=== PATIENT | female | born 1950 | race Caucasian/White ===

== ENCOUNTER 2017-06-08 11:04 | Emergency (ER) | payer MEDICARE, MEDICAID ==
[2017-06-08] MEDS ORDERED: diaZEpam 10 mg/2 ml Inj IVP ONE (11:54)
--- NOTE | 2017-06-08 11:56 | ED PDOC ---
HPI: Back Time Seen by Provider: 06/08/17 11:19 Chief Complaint (Nursing): Back Pain Chief Complaint (Provider): Back Pain History Per: Patient Additional Complaint(s): 66 yo female, PMH of DM, HTN and Chronic Back pain, presents to ED with complaints of severe lower back pain x 4 days. denies injury. No bowle or bladder dysfunction. Past Medical History Reviewed: Nursing Documentation, Vital Signs - Medical History PMH: Asthma, Back Problems, Diabetes, HTN Denies: Chronic Kidney Disease - Surgical History Surgical History: Cholecystectomy - Family History Family History: States: [place], Diabetes, Hypertension - Living Arrangements Living Arrangements: With Family - Social History Current smoker - smoking cessation education provided: No Alcohol: None Drugs: Denies - Home Medications Home Medications: Ambulatory Orders Medication Instructions Recorded Diazepam 5 mg PO DAILY #10 tab 04/30/14 Naproxen 500 mg PO BID #20 ect 04/30/14 Lidocaine 1 each TP Q12 #12 adh..patch 06/08/17 oxyCODONE/Acetaminophen [Percocet 1 ea PO Q6 PRN #5 tab 06/08/17 5/325 mg Tab] - Allergies Allergies/Adverse Reactions: Allergies Allergy/AdvReac Type Severity Reaction Status Date / Time codeine Allergy ITCHING Verified 06/08/17 11:48 Review of Systems ROS Statement: Except As Marked, All Systems Reviewed And Found Negative Musculoskeletal: Positive for: Back Pain Physical Exam - Reviewed Nursing Documentation Reviewed: Yes Vital Signs Reviewed: Yes - Physical Exam Appears: Positive for: Non-toxic, No Acute Distress, Uncomfortable Head Exam: Positive for: ATRAUMATIC, NORMAL INSPECTION, NORMOCEPHALIC Skin: Positive for: Normal Color, Warm, DRY Eye Exam: Positive for: EOMI, Normal appearance, PERRL ENT: Positive for: Normal ENT Inspection Neck: Positive for: Normal, Painless ROM Cardiovascular/Chest: Positive for: Regular Rate, Rhythm Respiratory: Positive for: CNT, Normal Breath Sounds Gastrointestinal/Abdominal: Positive for: Normal Exam, Bowel Sounds, Soft Back: Positive for: Normal Inspection. Negative for: L CVA Tenderness, R CVA Tenderness, Vertebral Tenderness, Other Extremity: Positive for: Normal ROM Neurologic/Psych: Positive for: Alert, Oriented Medical Decision Making Medical Decision Making: IV access established and treatment initiate with Morphine, Valium and Solumedrol CT IMPRESSION: No acute fracture, spondylolysis or anterior listhesis. Multilevel degenerative disc disease superimposed on a congenitally narrow spinal canal, worse at L4-5 with a diffuse posterior disc bulge which in conjunction with mild ligamentum flavum infolding results in mild spinal canal stenosis. Also noted is a left foraminal and far lateral disc protrusion which impinges on the exiting left L4 nerve root. Moderate bilateral facet arthropathy contribute to mild right and severe left neural foraminal stenosis. Pt educated on results and demonstrated full understanding. Pt still complaining of severer pain on re-eval. Medicated with Additional 4 mg Morphine. good relief obtained. Pt educated on importance of follow up and pain control. Continue gabapentin at home, in addition to new RX Return to ED if at anytime condition worsens Disposition - Clinical Impression Clinical Impression: Chronic back pain - Patient ED Disposition Is Patient to be Admitted: No - Disposition Disposition: Routine/Home Disposition Time: 15:23 Condition: STABLE Prescriptions: Lidocaine 1 each TP Q12 #12 adh..patch oxyCODONE/Acetaminophen [Percocet 5/325 mg Tab] 1 ea PO Q6 PRN #5 tab PRN Reason: Pain, Severe (8-10) Instructions: Chronic Back Pain (ED) Forms: [facility] (Thai) - POA Present On Arrival: None
--- NOTE | 2017-06-08 15:07 | CT ---
PROCEDURE: CT Lumbar Spine without contrast HISTORY: severe pain, urinary incontinence COMPARISON: None. TECHNIQUE: Axial computed tomography images were obtained of the lumbar spine without the use of intravenous contrast. Coronal and sagittal reformatted images were created and reviewed. Radiation dose: Total exam DLP = 1353.42 mGy-cm. This CT exam was performed using one or more of the following dose reduction techniques: Automated exposure control, adjustment of the mA and/or kV according to patient size, and/or use of iterative reconstruction technique. FINDINGS: VERTEBRAE: There is mild dextrocurvature in the lumbar spine. There is mild degenerative retrolisthesis of L5 on S1. There is normal lumbar lordosis. There is diffuse bone demineralization. There is no acute fracture or spondylolysis. 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 DISCS/SPINAL CANAL/NEURAL FORAMINA: L1-2: No large disc herniation, neural foraminal or spinal canal stenosis. L2-3: Diffuse posterior disc bulge in conjunction with mild ligamentum flavum infolding results in mild thecal sac stenosis. No central spinal canal stenosis. Mild bilateral facet arthropathy contributes to mild right neural foraminal stenosis. L3-4: Diffuse posterior disc bulge in conjunction with moderate ligamentum flavum infolding results in moderate thecal sac stenosis. Moderate bilateral facet arthropathy contributes to moderate neural foraminal stenosis. L4-5: Diffuse posterior disc bulge with superimposed left foraminal and far lateral disc protrusions in conjunction with mild ligamentum flavum infolding result in mild spinal canal stenosis. Moderate bilateral facet arthropathy contributes to mild right and severe left neural foraminal stenosis. Also noted is impingement on the exiting left L4 nerve root. L5-S1: Diffuse posterior disc bulge in conjunction with mild ligamentum flavum infolding results in mild spinal canal stenosis. Mild bilateral facet arthropathy contributes to moderate right and mild left neural foraminal stenosis. PARASPINAL SOFT TISSUES: Unremarkable. OTHER FINDINGS: None. IMPRESSION: No acute fracture, spondylolysis or anterior listhesis. Multilevel degenerative disc disease superimposed on a congenitally narrow spinal canal, worse at L4-5 with a diffuse posterior disc bulge which in conjunction with mild ligamentum flavum infolding results in mild spinal canal stenosis. Also noted is a left foraminal and far lateral disc protrusion which impinges on the exiting left L4 nerve root. Moderate bilateral facet arthropathy contribute to mild right and severe left neural foraminal stenosis.
[2017-06-08] MEDS ORDERED: Morphine 4 MG/ML VIAL ONE (15:22)
[2017-06-08 17:21] VITALS: BP 164/81; PULSE 78
== END 2017-06-08 15:54 | disposition home or self-care (01) ==
LOC: H.ER 11:04
DX: M54.9 Dorsalgia, unspecified (principal); E11.9 Type 2 diabetes mellitus without complications; G89.29 Other chronic pain; I10 Essential (primary) hypertension; J45.909 Unspecified asthma, uncomplicated; M48.061 Spinal stenosis, lumbar region without neurogenic claudication
CPT/HCPCS: 72131; 96374; 96375; 96376; 99283; J2270; J2930

== ENCOUNTER 2018-09-30 17:37 | Observation (INO) | payer MEDICARE, MEDICAID ==
[2018-09-30] MEDS ORDERED: Sodium Chloride 0.9% 1,000 ML IV STA ×2 (17:56→18:38)
--- NOTE | 2018-09-30 18:14 | ED PDOC ---
HPI: Abdomen Time Seen by Provider: 09/30/18 17:51 Chief Complaint (Nursing): Abdominal Pain Chief Complaint (Provider): Abdominal Pain History Per: Patient History/Exam Limitations: no limitations Current Symptoms Are (Timing): Still Present Additional Complaint(s): 68 year old female, with a history of herniated disks, abdominal hernia, HTN, diabetes, and asthma, presents to the ED complaining of abdominal pain. Daughter reports patient is always thirsty and dehydrated. 2 months ago, tabitha echevarria had fallen and had gone to the hospital. Daughter further states that patient has not used a bathroom in 15 days and has given her Enema and prune juice with no relief. She reports patient has had bilateral leg swelling for 3 months and yellow eyes. PMD: Adalberto Collins Past Medical History Reviewed: Historical Data, Nursing Documentation, Vital Signs Vital Signs: Last Vital Signs Temp 98.6 F 09/30/18 17:41 Pulse 80 09/30/18 17:41 Resp 16 09/30/18 17:41 BP 128/83 09/30/18 17:41 Pulse Ox 89 L 09/30/18 17:41 - Medical History PMH: Arthritis, Asthma, Back Problems, Diabetes, HTN, Hypercholesterolemia, Sleep Apnea Denies: Chronic Kidney Disease Other PMH: 3 Herniated disks and abdominal hernia - Surgical History Surgical History: Cholecystectomy - Family History Family History: States: [place], Diabetes, Hypertension - Immunization History Hx Tetanus Toxoid Vaccination: No Hx Influenza Vaccination: No Hx Pneumococcal Vaccination: No - Home Medications Home Medications: Ambulatory Orders Medication Instructions Recorded Gabapentin [Neurontin] 800 mg PO BID 02/26/18 MetFORMIN [glucoPHAGE] 1,000 mg PO BID 02/26/18 Budesonide/Formoterol Fumarate Q12 06/19/18 [Symbicort 80-4.5 Mcg Inhaler] amLODIPine [Norvasc] 10 mg PO DAILY 06/19/18 Albuterol/Ipratropium [Duoneb 3 3 ml INH RQ6 PRN neb 06/23/18 mg/0.5 mg (3 ml) UD] Docusate [Colace] 100 mg PO BID cap 06/23/18 Furosemide [Lasix] 20 mg PO DAILY tab 06/23/18 Heparin 5,000 units SC Q8 vial 06/23/18 Insulin Glargine, Recombina 50 unit SC HS unit 06/23/18 [Lantus] Insulin Human Regular [Novolin R] 0 unit SC ACHS unit 06/23/18 Insulin Human Regular [Novolin R] 0 unit SC ACHS unit 06/23/18 Losartan [Cozaar] 25 mg PO DAILY #30 tab 06/23/18 Mineral Oil [Fleet Mineral Oil 135 ml RC ONCE nma 06/23/18 Enema] Pantoprazole [Protonix EC Tab] 40 mg PO DAILY ect 06/23/18 Polyethylene Glycol 3350 [Miralax] 17 gm PO BID packet 06/23/18 Sodium Chloride [Sodium Chloride 1 gm PO DAILY tab 06/23/18 Tab] oxyCODONE [oxyCONTIN Extended 20 mg PO Q12H tab 06/23/18 Release Tab] - Allergies Allergies/Adverse Reactions: Allergies Allergy/AdvReac Type Severity Reaction Status Date / Time codeine Allergy ITCHING Verified 06/17/18 13:17 FISH Allergy ITCHING Verified 09/30/18 17:41 morphine Allergy ITCHING Verified 09/30/18 17:42 mushroom Allergy ITCHING Verified 06/19/18 18:27 Review of Systems ROS Statement: Except As Marked, All Systems Reviewed And Found Negative Gastrointestinal: Positive for: Abdominal Pain Musculoskeletal: Positive for: Other (Leg swelling) Physical Exam - Reviewed Nursing Documentation Reviewed: Yes Vital Signs Reviewed: Yes - Physical Exam Appears: Positive for: Uncomfortable Head Exam: Positive for: ATRAUMATIC, NORMOCEPHALIC Skin: Positive for: Normal Color, Warm, Dry Eye Exam: Positive for: Scleral icterus Cardiovascular/Chest: Positive for: Regular Rate, Rhythm Respiratory: Positive for: Other (Difficult to auscultate lungs due to patient moaning). Negative for: Crackles, Rhonchi, Wheezing Gastrointestinal/Abdominal: Positive for: Soft, Tenderness (diffuse tenderness worse in the RUQ) Back: Positive for: Other (unable to evaluate due to patient's inability to being turned secondary to pain) Extremity: Positive for: Other (Bilateral pitting edema past the knees; 2cm by 2cm patch to the left lateral ankle which is not open; unable to palpate distal pulses due to pitting edema) Neurological/Psych: Positive for: Awake, Alert - Laboratory Results Result Diagrams: 09/30/18 18:30 03/28/19 18:30 - ECG O2 Sat by Pulse Oximetry: 89 (RA) Pulse Ox Interpretation: Abnormal Medical Decision Making Medical Decision Making: Initial Impression: workup for right upper abdominal pain, fluid overload, and constipation Initial Plan: --CT abd/pelvis --Cardiac workup with BNP and Troponin --Chest X-ray --Reassess patient Most likely admission under [facility]. 19:00 Patient signed out to Dr. Brownlee pending lab results and CT abd/pelvis. To give Lasix if BMP is elevated or fluid overload on chest X-ray. Most likely admitted under [facility]. - Scribe Attestation: Documented by Sunny Pichardo acting as a scribe for Becki Mcgill MD. Provider Scribe Attestation: All medical record entries made by the Scribe were at my direction and personal ly dictated by me. I have reviewed the chart and agree that the record accurately reflects my personal performance of the history, physical exam, medical decision making, and the department course for this patient. I have also personally directed, reviewed, and agree with the discharge instructions and disposition. Disposition - Disposition Disposition: Transfer of Care Disposition Time: 19:00 Forms: [employer] ([place]) Patient Signed Over To: Barrington Brownlee
[2018-09-30 18:47] LABS: BASO # 0.1 K/uL (0.0-0.2); EOS # 0.3 K/uL (0.0-0.7); EOS % 2.8 % (0.0-4.0); HEMOGLOBIN 9.8 g/dL (12.0-16.0); LYMPH # 1.8 K/uL (1.0-4.3); LYMPH % 18.4 % (20.0-40.0); MEAN CELL VOLUME 94.3 fl (81.0-99.0); MEAN CORPUSCULAR HEMOGLOBIN 32.6 pg (27.0-31.0); MEAN CORPUSCULAR HGB CONC 34.6 g/dL (33.0-37.0); MEAN PLATELET VOLUME 9.2 fl (7.2-11.7); MONO # 1.1 K/uL (0.0-0.8); MONO % 10.7 % (0.0-10.0); NEUT # 6.7 K/uL (1.8-7.0); NEUT % 67.1 % (50.0-75.0); RBC 2.99 Mil/uL (3.80-5.20); WHITE BLOOD COUNT 9.9 K/uL (4.8-10.8)
[2018-09-30 18:58] LABS: ALB/GLOB RATIO 0.6 (1.0-2.1); ALBUMIN 3.1 g/dL (3.5-5.0); ALT/SGPT 81 U/L (9-52); AST/SGOT 308 U/L (14-36); BLOOD UREA NITROGEN 10 mg/dl (7-17); CALCIUM 8.3 mg/dL (8.4-10.2); GFR NON-AFRICAN AMERICAN > 60; LIPASE 46 U/L (23-300)
[2018-09-30 19:10] LABS: B-TYPE NATRIURETIC PEPTIDE 187 pg/ml (0-900)
--- NOTE | 2018-09-30 19:24 | ED PDOC ---
- Laboratory Results Result Diagrams: 09/30/18 18:30 09/30/18 18:30 Lab Results: Troponin I < 0.0120 ng/mL (0.00-0.120) 09/30/18 18:30 NT-Pro-B Natriuret Pep 187 pg/ml (0-900) 09/30/18 18:30 Total Bilirubin 8.4 mg/dl (0.2-1.3) H 09/30/18 18:30 AST 308 U/L (14-36) H D 09/30/18 18:30 ALT 81 U/L (9-52) H 09/30/18 18:30 Alkaline Phosphatase 380 U/L (38-126) H D 09/30/18 18:30 Total Protein 8.1 G/DL (6.3-8.2) 09/30/18 18:30 Albumin 3.1 g/dL (3.5-5.0) L 09/30/18 18:30 Globulin 5.0 gm/dL (2.2-3.9) H 09/30/18 18:30 Albumin/Globulin Ratio 0.6 (1.0-2.1) L 09/30/18 18:30 Lipase 46 U/L (23-300) 09/30/18 18:30 - ECG O2 Sat by Pulse Oximetry: 89 (RA) Pulse Ox Interpretation: Abnormal Medical Decision Making Medical Decision Makin:00 Patient signed out to this provider from Dr. Mcgill. Pending CT abd/pelvis and labs. 0018 Abdomen/Pelvis CT FINDINGS: LUNG BASES: The lung bases appear clear. No pleural effusions are seen. LIVER: Unremarkable. GALLBLADDER AND BILE DUCTS: Status post cholecystectomy. No biliary ductal dilatation is evident. PANCREAS: Unremarkable. SPLEEN: Unremarkable. ADRENAL GLANDS: Unremarkable. KIDNEYS, URETERS, AND BLADDER: The kidneys appear within normal limits. There is no hydronephrosis or hydroureter. No urinary calculi are seen. The urinary bladder appeared normal in size and configuration. STOMACH AND BOWEL: Unremarkable appearance of the stomach. No evidence of bowel obstruction. No evidence suggesting enteritis or colitis. There is subtle pericolonic haziness of the mesenteric fat about the lower-mid ascending colon possibly compatible with mesenteritis. APPENDIX: No evidence of acute appendicitis on CT examination. There appears to have been previous appendectomy. PERITONEUM: No free fluid. No free air. LYMPH NODES: No lymphadenopathy is evident. REPRODUCTIVE: Unremarkable as visualized. VASCULATURE: No evidence of abdominal aortic aneurysm. Moderate atherosclerotic vascular plaquing is present. BONES: No aggressive appearing osseous lesion. No acute osseous pathology evident. Advanced osteoarthritic changes are noted within both hip joints. There is vacuum disc phenomenon and disc interspace narrowing at T12-L1, L2-3, L3-4, L4- 5, L5-S1 compatible with degenerative disc disease. IMPRESSION: 1. Subtle pericolonic haziness of the mesenteric fat about the lower-mid ascending colon region may be compatible with mesenteritis. 2. Status post cholecystectomy. 3. There appears to have been prior appendectomy. 4. Multilevel degenerative disc disease. --Patient continues to be hypoxic on RA, saturating well on nasal cannula --CT does not show acute reason for pain at this moment --Will place in obs for hypoxia, dehydration, and abdominal pain --Adalberto Finch [place] aware Scribe Attestation: Documented by Sunny Pichardo acting as a scribe for Barrington Brownlee MD. Provider Scribe Attestation: All medical record entries made by the Scribe were at my direction and personal ly dictated by me. I have reviewed the chart and agree that the record accurately reflects my personal performance of the history, physical exam, medical decision making, and the department course for this patient. I have also personally directed, reviewed, and agree with the discharge instructions and disposition. Disposition - Clinical Impression Clinical Impression: Abdominal pain, Dehydration, Hypoxia - POA Present On Arrival: None - Disposition Disposition: Hospitalized as Observation Patient Disposition Time: 01:00 Condition: FAIR
[2018-09-30] MEDS ORDERED: Iohexol 300 100 ML IJ ONE (21:47)
[2018-09-30] MEDS ORDERED: Sodium Chloride 0.9% 50 ML IV ONE (21:48)
[2018-10-01] MEDS ORDERED: Oxycodone/Acetaminophen 5/325 mg Tab PO STA (00:53)
[2018-10-01] MEDS ORDERED: Oxycodone/Acetaminophen 5/325 mg Tab ONE (01:26)
[2018-10-01] MEDS ORDERED: Albuterol-Ipratrop 3 mg / 0.5 (3 ml) UD INH PRN (07:16)
[2018-10-01] MEDS: Insulin Regular 100 units/ml SC SCH ×4 (08:00→22:38)
--- NOTE | 2018-10-01 08:00 | RAD ---
Date of service: 09/30/2018 HISTORY: possible admission COMPARISON: No prior. TECHNIQUE: 1 view obtained. FINDINGS: LUNGS: No active pulmonary disease. PLEURA: No significant pleural effusion identified, no pneumothorax apparent. Right greater than left apical fibrotic changes noted mildly. CARDIOVASCULAR: Calcific atherosclerotic changes are seen related to the thoracic aorta. Normal cardiac size. No pulmonary vascular congestion. OSSEOUS STRUCTURES: No significant abnormalities. VISUALIZED UPPER ABDOMEN: Normal. OTHER FINDINGS: None. IMPRESSION: No acute infiltrate appreciated bilaterally. No pulmonary vascular congestion. Biapical fibrotic changes mild, greater at the right than left.
[2018-10-01] MEDS: Pantoprazole 40 mg EC Tab PO SCH (09:45)
[2018-10-01] MEDS: Fluticasone-Salmeterol 100-50mcg Diskus INH SCH ×2 (09:46→22:37)
[2018-10-01] MEDS: POLYETHYLENE GLYCOL 3350 17 GM/Dose PACKET PO SCH (09:46)
--- NOTE | 2018-10-01 11:27 | CT ---
Date of service: 09/30/2018 PROCEDURE: CT Abdomen and Pelvis with contrast HISTORY: RUQ pain, status post cholecystectomy COMPARISON: None. TECHNIQUE: Following the intravenous administration of iodinated contrast material, a CT examination of the abdomen and pelvis was performed from the domes of the diaphragms to the symphysis pubis with reformatted datasets provided in axial, sagittal and coronal planes. Oral contrast was not administered as per referring physician request. Contrast dose: Omnipaque 300, 95 cc Radiation dose: Total exam DLP = 778.21 mGy-cm. This CT exam was performed using one or more of the following dose reduction techniques: Automated exposure control, adjustment of the mA and/or kV according to patient size, and/or use of iterative reconstruction technique. FINDINGS: Beam hardening artifact from body habitus obscures evaluation of the upper and mid abdomen solid abdominal viscera. LOWER THORAX: Small hiatal hernia identified. No pleural or pericardial effusion appreciated. No infiltrates. LIVER: Unremarkable. No gross lesion or ductal dilatation. GALLBLADDER AND BILE DUCTS: Prior cholecystectomy. PANCREAS: Unremarkable. No gross lesion or ductal dilatation. SPLEEN: Unremarkable. ADRENALS: Unremarkable. No mass. KIDNEYS AND URETERS: Unremarkable. No hydronephrosis. No solid mass. VASCULATURE: Nonaneurysmal abdominal aortic calcific atherosclerotic changes are identified. BOWEL: The stomach decompressed and not well evaluated. No obstruction. However, there is gaseous distention of mid large-bowel loops which is nonspecific. Relatively prominent amount retained fecal material seen at the ascending colon with remainder of the colon essentially uninvolved. No gross mural thickening. APPENDIX: Normal appendix. PERITONEUM: Unremarkable. No free fluid. No free air. LYMPH NODES: Unremarkable. No enlarged lymph nodes. BLADDER: Unremarkable. REPRODUCTIVE: Unremarkable. BONES: No acute fracture. OTHER FINDINGS: None. IMPRESSION: 1. Nonspecific distention of mid large-bowel loops with prominent retained fecal material in the ascending colon. Distal large bowel obstruction not felt to be present. Clinically correlate nevertheless. Unremarkable small bowel. 2. Prior cholecystectomy. 3. Tiny hiatal hernia encountered. Preliminary report provided by Gus, 10/01/2018, 12:18 a.m..
[2018-10-01] MEDS ORDERED: Tolvaptan 15 MG TAB PO ONE (12:02)
--- NOTE | 2018-10-01 12:03 | CP.PCM.HP ---
History of Present Illness - History of Present Illness History of Present Illness: pt admitted for chronic back pain and leg pain and constipation. constipation likely the cause of the abd discomfort. all bw nad imaging reviewed. this is in line w/ recent bw from [facility] andthe office. the patient is well known to this provider. no cp, sob n oted/reported. echo pending. calls placed to pts daughter unanswered. pt does not wish for natalia Present on Admission - Present on Admission Any Indicators Present on Admission: Yes History of Uncontrolled Diabetes: Yes Review of Systems - Gastrointestinal Gastrointestinal: As Per HPI, Abdominal Pain - Musculoskeletal Musculoskeletal: As Per HPI, Back Pain, Muscle Cramps Past Patient History - Infectious Disease Hx of Infectious Diseases: None - Tetanus Immunizations Tetanus Immunization: Unknown - Past Medical History & Family History Past Medical History?: Yes - Past Social History Smoking Status: Former Smoker - CARDIAC Hx Cardiac Disorders: Yes (htn) Hx Hypercholesterolemia: Yes Hx Hypertension: Yes - PULMONARY Hx Respiratory Disorders: Yes Hx Asthma: Yes Hx Sleep Apnea: Yes - NEUROLOGICAL Hx Neurological Disorder: No - HEENT Hx HEENT Problems: No - RENAL Hx Chronic Kidney Disease: No - ENDOCRINE/METABOLIC Hx Endocrine Disorders: Yes (diabetes mellitus) Hx Diabetes Mellitus Type 2: Yes - HEMATOLOGICAL/ONCOLOGICAL Hx Blood Disorders: No Hx AIDS: No Hx Human Immunodeficiency Virus (HIV): No - INTEGUMENTARY Hx Dermatological Problems: No - MUSCULOSKELETAL/RHEUMATOLOGICAL Hx Musculoskeletal Disorders: Yes Hx Arthritis: Yes Hx Falls: Yes - GASTROINTESTINAL Hx Gastrointestinal Disorders: Yes Hx Constipation: Yes - GENITOURINARY/GYNECOLOGICAL Hx Genitourinary Disorders: Yes Hx Incontinence: Yes - PSYCHIATRIC Hx Psychophysiologic Disorder: Yes Hx Anxiety: Yes Hx Substance Use: No - SURGICAL HISTORY Hx Surgeries: Yes Hx Cholecystectomy: Yes - ANESTHESIA Hx Anesthesia: Yes Hx Anesthesia Reactions: No Hx Malignant Hyperthermia: No Has any member of the family had a problem w/ anesthesia?: No Meds Allergies/Adverse Reactions: Allergies Allergy/AdvReac Type Severity Reaction Status Date / Time codeine Allergy ITCHING Verified 06/17/18 13:17 FISH Allergy ITCHING Verified 09/30/18 17:41 morphine Allergy ITCHING Verified 09/30/18 17:42 mushroom Allergy ITCHING Verified 06/19/18 18:27 Physical Exam - Constitutional Appears: Non-toxic, No Acute Distress, Chronically Ill - Head Exam Head Exam: ATRAUMATIC, NORMAL INSPECTION, NORMOCEPHALIC - Eye Exam Eye Exam: EOMI, Normal appearance, PERRL Pupil Exam: NORMAL ACCOMODATION, PERRL - ENT Exam ENT Exam: Mucous Membranes Moist, Normal Exam - Neck Exam Neck exam: Positive for: Normal Inspection - Respiratory Exam Respiratory Exam: Clear to Auscultation Bilateral, NORMAL BREATHING PATTERN - Cardiovascular Exam Cardiovascular Exam: REGULAR RHYTHM, RRR, +S1, +S2 - GI/Abdominal Exam GI & Abdominal Exam: Normal Bowel Sounds, Soft. absent: Tenderness - Extremities Exam Extremities exam: Positive for: normal inspection - Back Exam Back exam: NORMAL INSPECTION - Neurological Exam Neurological exam: Alert, CN II-XII Intact, Normal Gait, Oriented x3, Reflexes Normal - Psychiatric Exam Psychiatric exam: Normal Affect, Normal Mood - Skin Skin Exam: Dry, Intact, Normal Color, Warm Results - Vital Signs Recent Vital Signs: Last Vital Signs Temp 97.4 F L 10/01/18 07:13 Pulse 63 10/01/18 11:21 Resp 18 10/01/18 09:07 BP 121/69 10/01/18 11:21 Pulse Ox 100 10/01/18 07:13 - Labs Result Diagrams: 10/01/18 12:25 10/02/18 05:31 Labs: Laboratory Results - last 24 hr 09/30/18 09/30/18 09/30/18 18:30 18:30 21:29 WBC 9.9 RBC 2.99 L Hgb 9.8 L Hct 28.2 L MCV 94.3 MCH 32.6 H MCHC 34.6 RDW 16.0 H Plt Count 273 MPV 9.2 Neut % (Auto) 67.1 Lymph % (Auto) 18.4 L Rankin % (Auto) 10.7 H Eos % (Auto) 2.8 Baso % (Auto) 1.0 Neut # (Auto) 6.7 Lymph # (Auto) 1.8 Rankin # (Auto) 1.1 H Eos # (Auto) 0.3 Baso # (Auto) 0.1 Sodium 126 L Potassium 4.1 Chloride 94 L Carbon Dioxide 24 Anion Gap 12 BUN 10 Creatinine 0.8 Est GFR ( Amer) > 60 Est GFR (Non-Af Amer) > 60 POC Glucose (mg/dL) 144 H Random Glucose 138 H Calcium 8.3 L Total Bilirubin 8.4 H AST 308 H D ALT 81 H Alkaline Phosphatase 380 H D Troponin I < 0.0120 NT-Pro-B Natriuret Pep 187 Total Protein 8.1 Albumin 3.1 L Globulin 5.0 H Albumin/Globulin Ratio 0.6 L Lipase 46 Assessment & Plan (1) DVT prophylaxis Assessment and Plan: scd nad ae hose anti coag if admitted over 24h Status: Acute (2) Chronic hyponatremia Assessment and Plan: improving nephro Status: Acute (3) Chronic back pain Assessment and Plan: pain control refusing to be oob ptot refusing natalia Status: Chronic Priority: High (4) T2DM (type 2 diabetes mellitus) Assessment and Plan: riss, home meds, diet control Morbidobesity-bmi 46.8 diet/exercise. Status: Chronic Priority: Medium (5) Morbid obesity with BMI of 45.0-49.9, adult Status: Acute Decision To Admit - Pt Status Changed To: Hospital Disposition Of: Observation - . Bed Request Type: Telemetry Admitting Physician: Karyn Negrete
[2018-10-01 13:09] LABS: BASO # 0.1 K/uL (0.0-0.2); BASO % 1.2 % (0.0-2.0); EOS # 0.3 K/uL (0.0-0.7); EOS % 3.6 % (0.0-4.0); HEMOGLOBIN 8.9 g/dL (12.0-16.0); LYMPH % 22.5 % (20.0-40.0); MEAN CELL VOLUME 94.2 fl (81.0-99.0); MEAN CORPUSCULAR HEMOGLOBIN 32.9 pg (27.0-31.0); MEAN PLATELET VOLUME 8.8 fl (7.2-11.7); MONO # 1.1 K/uL (0.0-0.8); MONO % 12.5 % (0.0-10.0); NEUT # 5.2 K/uL (1.8-7.0); NEUT % 60.2 % (50.0-75.0); NRBC % 0.1 % (0.0-0.0); RBC 2.69 Mil/uL (3.80-5.20); RED CELL DISTRIBUTION WIDTH 15.5 % (11.5-14.5); WHITE BLOOD COUNT 8.7 K/uL (4.8-10.8)
--- NOTE | 2018-10-01 13:09 | CP.PCM.CON ---
History of Present Illness - History of Present Illness History of Present Illness: This patient who is 68 years of age Afro-[place] female presented with back pain and abdominal distention and I was called to see her for hyponatremia. 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 Family history not contributory And past medical history above related to diabetes mellitus hypertension obesity hyperlipidemia abnormal liver function. And chronic hyponatremia Review of Systems - Constitutional Constitutional: Anorexia. absent: Chills - EENT Eyes: absent: Exophthalmos Nose/Mouth/Throat: absent: Epistaxis, Nasal Discharge, Sore Throat - Cardiovascular Cardiovascular: Dyspnea, Edema, Leg Edema, Paroxysmal Nocturnal Dyspnea, Pedal Edema, Syncope. absent: Chest Pain - Respiratory Respiratory: Chest Congestion. absent: Cough, Hemoptysis - Gastrointestinal Gastrointestinal: Bloating. absent: Abdominal Pain, Coffee Ground Emesis, Nausea - Genitourinary Genitourinary: Nocturia. absent: Hematuria - Musculoskeletal Musculoskeletal: Abnormal Gait, Back Pain - Neurological Neurological: As Per HPI, Dizziness, Syncope, Weakness. absent: Numbness, Focal Weakness, Headaches - Psychiatric Psychiatric: absent: Anxiety, Confusion - Endocrine Endocrine: Fatigue - Hematologic/Lymphatic Hematologic: absent: Easy Bleeding Past Patient History - Infectious Disease Hx of Infectious Diseases: None - Tetanus Immunizations Tetanus Immunization: Unknown - Past Medical History & Family History Past Medical History?: Yes - Past Social History Smoking Status: Former Smoker - CARDIAC Hx Cardiac Disorders: Yes (htn) Hx Hypercholesterolemia: Yes Hx Hypertension: Yes - PULMONARY Hx Respiratory Disorders: Yes Hx Asthma: Yes Hx Sleep Apnea: Yes - NEUROLOGICAL Hx Neurological Disorder: No - HEENT Hx HEENT Problems: No - RENAL Hx Chronic Kidney Disease: No - ENDOCRINE/METABOLIC Hx Endocrine Disorders: Yes (diabetes mellitus) Hx Diabetes Mellitus Type 2: Yes - HEMATOLOGICAL/ONCOLOGICAL Hx Blood Disorders: No Hx AIDS: No Hx Human Immunodeficiency Virus (HIV): No - INTEGUMENTARY Hx Dermatological Problems: No - MUSCULOSKELETAL/RHEUMATOLOGICAL Hx Musculoskeletal Disorders: Yes Hx Arthritis: Yes Hx Falls: Yes - GASTROINTESTINAL Hx Gastrointestinal Disorders: Yes Hx Constipation: Yes - GENITOURINARY/GYNECOLOGICAL Hx Genitourinary Disorders: Yes Hx Incontinence: Yes - PSYCHIATRIC Hx Psychophysiologic Disorder: Yes Hx Anxiety: Yes Hx Substance Use: No - SURGICAL HISTORY Hx Surgeries: Yes Hx Cholecystectomy: Yes - ANESTHESIA Hx Anesthesia: Yes Hx Anesthesia Reactions: No Hx Malignant Hyperthermia: No Has any member of the family had a problem w/ anesthesia?: No Meds Allergies/Adverse Reactions: Allergies Allergy/AdvReac Type Severity Reaction Status Date / Time codeine Allergy ITCHING Verified 06/17/18 13:17 FISH Allergy ITCHING Verified 09/30/18 17:41 morphine Allergy ITCHING Verified 09/30/18 17:42 mushroom Allergy ITCHING Verified 06/19/18 18:27 - Medications Medications: Current Medications Albuterol/Ipratropium (Duoneb 3 Mg/0.5 Mg (3 Ml) Ud) 3 ml INH RQ6 PRN PRN Reason: Shortness of Breath Amlodipine Besylate (Norvasc) 10 mg PO DAILY [facility] Last Admin: 10/01/18 11:21 Dose: 10 mg Docusate Sodium (Colace) 100 mg PO BID [facility] Last Admin: 10/01/18 09:46 Dose: 100 mg Furosemide (Lasix) 20 mg PO DAILY [facility] Gabapentin (Neurontin) 800 mg PO BID [facility] Last Admin: 10/01/18 11:21 Dose: 800 mg Heparin Sodium (Porcine) (Heparin) 5,000 units SC Q8 [facility]; Protocol Last Admin: 10/01/18 11:20 Dose: 5,000 units Insulin Detemir (Levemir) 50 units SC HS [facility] Insulin Human Regular (Humulin R) 0 units SC ACHS [facility]; Protocol Last Admin: 10/01/18 11:50 Dose: Not Given Losartan Potassium (Cozaar) 25 mg PO DAILY [facility] Last Admin: 10/01/18 11:20 Dose: 25 mg Metformin HCl (Glucophage) 1,000 mg PO BID [facility] Last Admin: 10/01/18 11:19 Dose: 1,000 mg Pantoprazole Sodium (Protonix Ec Tab) 40 mg PO DAILY [facility] Last Admin: 10/01/18 09:45 Dose: 40 mg Polyethylene Glycol (Miralax) 17 gm PO DAILY [facility] Last Admin: 10/01/18 09:46 Dose: 17 gm Fluticasone/Salmeterol (Advair Diskus 100/50) 1 puff INH Q12 [facility] Last Admin: 10/01/18 09:46 Dose: 1 puff Physical Exam - Constitutional Appears: No Acute Distress - Eye Exam Eye Exam: Conjunctival injection - ENT Exam ENT Exam: Mucous Membranes Moist - Neck Exam Neck exam: Negative for: Lymphadenopathy - Respiratory Exam Respiratory Exam: Rhonchi, NORMAL BREATHING PATTERN. absent: Chest Wall Tenderness - Cardiovascular Exam Cardiovascular Exam: absent: Gallop, JVD, Rubs - GI/Abdominal Exam GI & Abdominal Exam: Guarding, Normal Bowel Sounds - Extremities Exam Extremities exam: Negative for: calf tenderness - Back Exam Back exam: absent: CVA tenderness (L), CVA tenderness (R) - Neurological Exam Neurological exam: Alert - Psychiatric Exam Psychiatric exam: Anxious Results - Vital Signs Recent Vital Signs: Last Vital Signs Temp 97.4 F L 10/01/18 12:07 Pulse 70 10/01/18 12:07 Resp 18 10/01/18 12:07 BP 142/73 10/01/18 12:07 Pulse Ox 100 10/01/18 12:07 - Labs Result Diagrams: 09/30/18 18:30 09/30/18 18:30 Labs: Laboratory Results - last 24 hr 09/30/18 09/30/18 09/30/18 18:30 18:30 21:29 WBC 9.9 RBC 2.99 L Hgb 9.8 L Hct 28.2 L MCV 94.3 MCH 32.6 H MCHC 34.6 RDW 16.0 H Plt Count 273 MPV 9.2 Neut % (Auto) 67.1 Lymph % (Auto) 18.4 L Hudson % (Auto) 10.7 H Eos % (Auto) 2.8 Baso % (Auto) 1.0 Neut # (Auto) 6.7 Lymph # (Auto) 1.8 Hudson # (Auto) 1.1 H Eos # (Auto) 0.3 Baso # (Auto) 0.1 Sodium 126 L Potassium 4.1 Chloride 94 L Carbon Dioxide 24 Anion Gap 12 BUN 10 Creatinine 0.8 Est GFR ( Amer) > 60 Est GFR (Non-Af Amer) > 60 POC Glucose (mg/dL) 144 H Random Glucose 138 H Calcium 8.3 L Total Bilirubin 8.4 H AST 308 H D ALT 81 H Alkaline Phosphatase 380 H D Troponin I < 0.0120 NT-Pro-B Natriuret Pep 187 Total Protein 8.1 Albumin 3.1 L Globulin 5.0 H Albumin/Globulin Ratio 0.6 L Lipase 46 Assessment & Plan (1) Abdominal pain Status: Acute (2) Chronic hyponatremia Assessment and Plan: Chronic hyponatremia from previous admission in [facility] Diagnosis what appears to be SIADH Massive obesity Bilateral leg edema Abnormal liver enzyme including high bilirubin Diabetes mellitus My recommendation Because of the chronic hyponatremia and previous diagnosis SIADH with bilateral leg edema it was decided to go ahead and give tolvaptan for the hyponatremia because of the above reason. Need to monitor sodium not to rise more than 8-10 mEq in the next 24 hours Stat spot urine for sodium osmolarity and creatinine Management of the liver failure and suggest GI evaluation workup including hepatitis serology profile among other things Daily weight Daily electrolytes and we will decide tomorrow the response to tolvaptan Status: Acute (3) Elevated transaminase level Status: Acute (4) Obesity Status: Acute
[2018-10-01 13:26] LABS: SQUAMOUS EPITHIAL 1 /hpf (0-5); URINE BACTERIA RARE (<OCC); URINE BILIRUBIN NEGATIVE (NEGATIVE); URINE BLOOD NEGATIVE (NEGATIVE); URINE CLARITY CLEAR (Clear); URINE COLOR AMBER (YELLOW); URINE GLUCOSE (UA) NEG (NEGATIVE); URINE LEUKOCYTE ESTERASE NEG Leu/uL (Negative); URINE PROTEIN NEGATIVE (NEGATIVE)
[2018-10-01 13:28] LABS: ALB/GLOB RATIO 0.6 (1.0-2.1); ALBUMIN 2.6 g/dL (3.5-5.0); ALT/SGPT 64 U/L (9-52); AST/SGOT 256 U/L (14-36); BLOOD UREA NITROGEN 9 mg/dl (7-17); CALCIUM 7.9 mg/dL (8.4-10.2); GFR NON-AFRICAN AMERICAN > 60; HDL CHOLESTEROL 10 MG/DL (30-70)
[2018-10-01 13:34] LABS: LDL CHOLESTEROL 76 mg/dL (0-129)
[2018-10-01] MEDS ORDERED: Oxycodone/Acetaminophen 5/325 mg Tab PO PRN (16:09)
--- NOTE | 2018-10-01 16:57 | CARD ---
APPROVED REPORT Date of service: 10/01/2018 EXAM: Two-dimensional and M-mode echocardiogram with Doppler and color Doppler. Other Information Quality : AverageRhythm : NSR Technically limited study due to body habitus. INDICATION Congestive Heart Failure 2D DIMENSIONS IVSd1.41 (0.7-1.1cm)LVDd3.78 (3.9-5.9cm) LVOT Diameter2.17 (1.8-2.4cm)PWd1.45 (0.7-1.1cm) IVSs1.51 (0.8-1.2cm)LVDs2.84 (2.5-4.0cm) FS (%) 24.7 %PWs1.23 (0.8-1.2cm) M-Mode DIMENSIONS Left Atrium (MM)3.95 (2.5-4.0cm)IVSd1.75 (0.7-1.1cm) Aortic Root2.97 (2.2-3.7cm)LVDd4.23 (4.0-5.6cm) Aortic Cusp Exc.2.20 (1.5-2.0cm)PWd1.08 (0.7-1.1cm) IVSs1.40 cmFS (%) 37 % LVDs2.65 (2.0-3.8cm)PWs1.78 cm Mitral Valve E/A ratio0.0 TDI E/Lateral E'0.0E/Medial E'0.0 LEFT VENTRICLE The left ventricle is normal size. There is mild concentric left ventricular hypertrophy. The left ventricular systolic function is normal. The estimated ejection fraction is 55-60% No regional wall motion abnormalities noted.. Transmitral Doppler flow pattern is Grade I-abnormal relaxation pattern. No left ventricle thrombus noted on this study. There is no ventricular septal defect visualized. There is no left ventricular aneurysm. There is no mass noted in the left ventricle. RIGHT VENTRICLE The right ventricle is normal size. There is normal right ventricular wall thickness. The right ventricular systolic function is normal. ATRIA The left atrium is mildly dilated. The right atrium size is normal. The interatrial septum is intact with no evidence for an atrial septal defect. AORTIC VALVE The aortic valve is normal in structure. No aortic regurgitation is present. There is no aortic valvular stenosis. There is no aortic valvular vegetation. MITRAL VALVE The mitral valve is normal in structure. There is no evidence of mitral valve prolapse. There is no mitral valve stenosis. There is no mitral valve regurgitation noted. TRICUSPID VALVE The tricuspid valve is normal in structure. There is no tricuspid valve regurgitation noted. There is no tricuspid valve prolapse or vegetation. There is no tricuspid valve stenosis. PULMONIC VALVE The pulmonary valve is normal in structure. There is no pulmonic valvular regurgitation. There is no pulmonic valvular stenosis. GREAT VESSELS The aortic root is normal in size. The ascending aorta is normal in size. The pulmonary artery is normal. The IVC is normal in size and collapses >50% with inspiration. PERICARDIAL EFFUSION There is no pericardial effusion. There is no pleural effusion. <Conclusion> There is mild concentric left ventricular hypertrophy. The estimated ejection fraction is 55-60% Transmitral Doppler flow pattern is Grade I-abnormal relaxation pattern. The left atrium is mildly dilated. There is no tricuspid valve regurgitation noted.
[2018-10-01 17:40] LABS: CREATININE, RANDOM URINE 58.6 mg/dL
[2018-10-01 21:39] LABS: HEPATITIS B SURFACE AG Negative (NEGATIVE)
[2018-10-01 21:44] LABS: HEPATITIS A IGM NEGATIVE (NEGATIVE); HEPATITIS B CORE AB NEGATIVE (NEGATIVE)
[2018-10-01 21:56] LABS: HEPATITIS C ANTIBODY NEGATIVE (NEGATIVE)
[2018-10-01] MEDS ORDERED: Insulin Detemir 100 Units/ml Inj SC SCH (22:00)
[2018-10-01 22:38] LABS: BLOOD UREA NITROGEN 10 mg/dl (7-17); CALCIUM 8.1 mg/dL (8.4-10.2); GFR NON-AFRICAN AMERICAN > 60
--- NOTE | 2018-10-02 06:29 | CON ---
DATE: 10/01/2018 REFERRING PHYSICIAN: Dr. Farris. REASON FOR CONSULTATION: Abdominal pain. HISTORY OF PRESENT ILLNESS: This is a very pleasant 68-year-old female with history of morbid obesity who comes in from the office with back pain, leg pain, constipation. The patient required narcotics and had bowels in days. Currently, lying in bed comfortable, in no apparent distress. PAST MEDICAL HISTORY: As above. PAST SURGICAL HISTORY: As above. MEDICATIONS: Reviewed. REVIEW OF SYSTEMS: All other systems have been reviewed and negative apart from the HPI. PHYSICAL EXAMINATION: VITAL SIGNS: Here in the hospital are grossly unremarkable. GENERAL: This is a pleasant, elderly appearing female, lying in bed comfortably, in no apparent distress. HEENT: Head: Normocephalic, atraumatic. Eyes: Pupils are equally reactive to light bilaterally. No conjunctival pallor or icterus. NECK: Supple. Normal range of motion. No lymphadenopathy appreciated. LUNGS: Coarse breath sounds bilaterally. HEART: S1 and S2, regular rate and rhythm. No murmurs appreciated. ABDOMEN: Soft, nontender. Bowel sounds present. No rebound. No guarding. RECTAL: Deferred. EXTREMITIES: Pulses felt bilaterally. SKIN: Warm, dry, and intact. NEUROLOGICAL: A and O x3. LABORATORY DATA: Labs and radiology have been reviewed. Labs include WBC 8.3, hemoglobin 8.9, hematocrit 25.4. Sodium 127, total bilirubin 8.4, AST 256, ALT 64, alk phos 379, albumin 2.6. ASSESSMENT AND PLAN: This is a 68-year-old female came in with multiple medical problems constipation, ____ elevated LFTs. For the constipation recommend Lactulose p.r.n., evaluation. Recommend hepatitis panel and ultrasound as well. We will follow the patient with you. Thank you for the consult. Iam Kam MD/ PhD cc: Dr. Farris
[2018-10-02 06:30] LABS: ALB/GLOB RATIO 0.6 (1.0-2.1); ALBUMIN 2.9 g/dL (3.5-5.0); ALT/SGPT 58 U/L (9-52); AST/SGOT 270 U/L (14-36); BLOOD UREA NITROGEN 12 mg/dl (7-17); GFR NON-AFRICAN AMERICAN > 60
[2018-10-02] MEDS: Insulin Regular 100 units/ml SC SCH ×2 (06:45→12:15)
--- NOTE | 2018-10-02 08:10 | CP.PCM.PN ---
Subjective - Date & Time of Evaluation Date of Evaluation: 10/02/18 Time of Evaluation: 08:08 - Subjective Subjective: pt remains as assessed. per rn not willing to get oob. no f/c, n/v/d. cont w/ chronic pain complaints. bw noted. na increasing. nephro and gi consult appriciated. Objective - Vital Signs/Intake and Output Vital Signs (last 24 hours): Temp Pulse Resp BP Pulse Ox 98.5 F 90 20 115/71 100 10/02/18 04:52 10/02/18 04:52 10/02/18 04:52 10/02/18 04:52 10/02/18 04:52 Intake and Output: 10/02/18 10/02/18 06:59 18:59 Intake Total 900 Output Total 1400 Balance -500 - Medications Medications: Current Medications Albuterol/Ipratropium (Duoneb 3 Mg/0.5 Mg (3 Ml) Ud) 3 ml INH RQ6 PRN PRN Reason: Shortness of Breath Amlodipine Besylate (Norvasc) 10 mg PO DAILY [facility] Last Admin: 10/01/18 11:21 Dose: 10 mg Docusate Sodium (Colace) 100 mg PO BID [facility] Last Admin: 10/01/18 16:40 Dose: 100 mg Furosemide (Lasix) 20 mg PO DAILY [facility] Gabapentin (Neurontin) 800 mg PO BID [facility] Last Admin: 10/01/18 16:41 Dose: 800 mg Heparin Sodium (Porcine) (Heparin) 5,000 units SC Q8 [facility]; Protocol Last Admin: 10/02/18 00:37 Dose: 5,000 units Insulin Detemir (Levemir) 50 units SC HS [facility] Last Admin: 10/01/18 22:38 Dose: 50 units Insulin Human Regular (Humulin R) 0 units SC ACHS [facility]; Protocol Last Admin: 10/02/18 06:45 Dose: Not Given Lactulose (Enulose) 20 gm PO Q12 [facility] Stop: 10/03/18 09:01 Last Admin: 10/02/18 00:39 Dose: Not Given Losartan Potassium (Cozaar) 25 mg PO DAILY [facility] Last Admin: 10/01/18 11:20 Dose: 25 mg Metformin HCl (Glucophage) 1,000 mg PO BID [facility] Last Admin: 10/01/18 16:40 Dose: 1,000 mg Oxycodone/Acetaminophen (Percocet 5/325 Mg Tab) 1 tab PO Q6 PRN PRN Reason: Pain, moderate (4-7) Stop: 10/04/18 16:10 Last Admin: 10/01/18 16:40 Dose: 1 tab Pantoprazole Sodium (Protonix Ec Tab) 40 mg PO DAILY [facility] Last Admin: 10/01/18 09:45 Dose: 40 mg Polyethylene Glycol (Miralax) 17 gm PO DAILY [facility] Last Admin: 10/01/18 09:46 Dose: 17 gm Fluticasone/Salmeterol (Advair Diskus 100/50) 1 puff INH Q12 [facility] Last Admin: 10/01/18 22:37 Dose: 1 puff - Labs Labs: 10/01/18 12:25 10/02/18 05:31 - Constitutional Appears: Well, Non-toxic, No Acute Distress - Head Exam Head Exam: ATRAUMATIC, NORMAL INSPECTION, NORMOCEPHALIC - Eye Exam Eye Exam: EOMI, Normal appearance, PERRL Pupil Exam: NORMAL ACCOMODATION, PERRL - ENT Exam ENT Exam: Mucous Membranes Moist, Normal Exam - Neck Exam Neck Exam: Full ROM, Normal Inspection. absent: Lymphadenopathy - Respiratory Exam Respiratory Exam: Clear to Ausculation Bilateral, NORMAL BREATHING PATTERN - Cardiovascular Exam Cardiovascular Exam: REGULAR RHYTHM, RRR, +S1, +S2. absent: Murmur - GI/Abdominal Exam GI & Abdominal Exam: Soft, Normal Bowel Sounds. absent: Tenderness - Extremities Exam Extremities Exam: Full ROM, Normal Capillary Refill, Normal Inspection. absent: Joint Swelling, Pedal Edema - Back Exam Back Exam: NORMAL INSPECTION - Neurological Exam Neurological Exam: Abnormal Gait, Alert, Awake, CN II-XII Intact, Oriented x3 - Psychiatric Exam Psychiatric exam: Normal Affect, Normal Mood - Skin Skin Exam: Dry, Intact, Normal Color, Warm Assessment and Plan (1) DVT prophylaxis Status: Acute (2) Chronic hyponatremia Status: Acute (3) Elevated transaminase level Status: Acute (4) T2DM (type 2 diabetes mellitus) Status: Chronic - Assessment and Plan (Free Text) Assessment: (1) DVT prophylaxis Assessment and Plan: scd nad ae hose anti coag if admitted over 24h Status: Acute (2) Chronic hyponatremia Assessment and Plan: improving nephro Status: Acute (3) Chronic back pain Assessment and Plan: pain control refusing to be oob ptot refusing natalia Status: Chronic Priority: High (4) T2DM (type 2 diabetes mellitus) Assessment and Plan: riss, home meds, diet control Morbidobesity-bmi 46.8 diet/exercise. Status: Chronic Priority: Medium (5) Morbid obesity with BMI of 45.0-49.9, adult Status: Acute
[2018-10-02 08:15] VITALS: RESP 18
[2018-10-02] MEDS: POLYETHYLENE GLYCOL 3350 17 GM/Dose PACKET PO SCH (08:49)
[2018-10-02] MEDS: Pantoprazole 40 mg EC Tab PO SCH (08:50)
[2018-10-02] MEDS: Fluticasone-Salmeterol 100-50mcg Diskus INH SCH (08:53)
[2018-10-02] MEDS ORDERED: Tolvaptan 15 MG TAB PO ONE (11:41)
[2018-10-02 12:22] VITALS: BP 101/65; PULSE 94; TEMP 98.3; O2SAT 98
--- NOTE | 2018-10-02 12:55 | CP.PCM.DIS ---
Provider - Provider Date of Admission: 10/01/18 00:57 Attending physician: Karyn Negrete MD Consults: 10/01/18 09:09 Nephrology Consult Routine Comment: Consulting Provider: Dick Chacon Consulting Physician: Dick Chacon Reason for Consult: hyponatremia 10/01/18 09:57 Nursing Referral for Wound Care Routine Comment: Sacrum redness, koby leg dry scaly skin Physician Instructions: Reason For Exam: Right upper buttock old healed scab 10/01/18 10:01 Case Management Referral Routine Comment: Physician Instructions: Reason For Exam: Reason for Referral: Discharge Planning 10/01/18 15:03 Gastroenterology Consult Routine Comment: Consulting Provider: Iam Kam Consulting Physician: Iam Kam Reason for Consult: elev lft Time Spent in preparation of Discharge (in minutes): 30 Diagnosis - Discharge Diagnosis (1) DVT prophylaxis Status: Acute (2) Chronic hyponatremia Status: Acute (3) Elevated transaminase level Status: Acute (4) T2DM (type 2 diabetes mellitus) Status: Chronic Priority: Medium Hospital Course - Lab Results Lab Results: Most Recent Lab Values WBC 8.7 K/uL (4.8-10.8) 10/01/18 12:25 RBC 2.69 Mil/uL (3.80-5.20) L 10/01/18 12:25 Hgb 8.9 g/dL (12.0-16.0) L 10/01/18 12:25 Hct 25.4 % (34.0-47.0) L 10/01/18 12:25 MCV 94.2 fl (81.0-99.0) 10/01/18 12:25 MCH 32.9 pg (27.0-31.0) H 10/01/18 12:25 MCHC 35.0 g/dL (33.0-37.0) 10/01/18 12:25 RDW 15.5 % (11.5-14.5) H 10/01/18 12:25 Plt Count 207 K/uL (130-400) 10/01/18 12:25 MPV 8.8 fl (7.2-11.7) 10/01/18 12:25 Neut % (Auto) 60.2 % (50.0-75.0) 10/01/18 12:25 Lymph % (Auto) 22.5 % (20.0-40.0) 10/01/18 12:25 Hinds % (Auto) 12.5 % (0.0-10.0) H 10/01/18 12:25 Eos % (Auto) 3.6 % (0.0-4.0) 10/01/18 12:25 Baso % (Auto) 1.2 % (0.0-2.0) 10/01/18 12:25 Neut # (Auto) 5.2 K/uL (1.8-7.0) 10/01/18 12:25 Lymph # (Auto) 2.0 K/uL (1.0-4.3) 10/01/18 12:25 Hinds # (Auto) 1.1 K/uL (0.0-0.8) H 10/01/18 12:25 Eos # (Auto) 0.3 K/uL (0.0-0.7) 10/01/18 12:25 Baso # (Auto) 0.1 K/uL (0.0-0.2) 10/01/18 12:25 Sodium 129 mmol/l (132-148) L 10/02/18 05:31 Potassium 4.4 MMOL/L (3.6-5.0) 10/02/18 05:31 Chloride 97 mmol/L (98-107) L 10/02/18 05:31 Carbon Dioxide 22 mmol/L (22-30) 10/02/18 05:31 Anion Gap 14 (10-20) 10/02/18 05:31 BUN 12 mg/dl (7-17) 10/02/18 05:31 Creatinine 0.9 mg/dl (0.7-1.2) 10/02/18 05:31 Est GFR ( Amer) > 60 10/02/18 05:31 Est GFR (Non-Af Amer) > 60 10/02/18 05:31 POC Glucose (mg/dL) 115 mg/dL (65-110) H 10/02/18 05:16 Random Glucose 84 mg/dL (65-105) 10/02/18 05:31 Serum Osmolality 266 mosm/kg (272-300) L 10/01/18 12:25 Calcium 8.0 mg/dL (8.4-10.2) L 10/02/18 05:31 Phosphorus 3.9 mg/dl (2.5-4.5) 10/02/18 05:31 Magnesium 1.9 MG/DL (1.6-2.3) 10/02/18 05:31 Total Bilirubin 9.1 mg/dl (0.2-1.3) H 10/02/18 05:31 AST 270 U/L (14-36) H 10/02/18 05:31 ALT 58 U/L (9-52) H 10/02/18 05:31 Alkaline Phosphatase 403 U/L (38-126) H 10/02/18 05:31 Troponin I < 0.0120 ng/mL (0.00-0.120) 10/01/18 12:25 NT-Pro-B Natriuret Pep 187 pg/ml (0-900) 09/30/18 18:30 Total Protein 7.8 G/DL (6.3-8.2) 10/02/18 05:31 Albumin 2.9 g/dL (3.5-5.0) L 10/02/18 05:31 Globulin 4.9 gm/dL (2.2-3.9) H 10/02/18 05:31 Albumin/Globulin Ratio 0.6 (1.0-2.1) L 10/02/18 05:31 Triglycerides 93 mg/DL (0-149) 10/01/18 12:25 Cholesterol 117 mg/dL (0-199) 10/01/18 12:25 LDL Cholesterol Direct 76 mg/dL (0-129) 10/01/18 12:25 HDL Cholesterol 10 MG/DL (30-70) L 10/01/18 12:25 Lipase 46 U/L (23-300) 09/30/18 18:30 Urine Color Anabelle (YELLOW) 10/01/18 13:00 Urine Clarity Clear (Clear) 10/01/18 13:00 Urine pH 6.0 (5.0-8.0) 10/01/18 13:00 Ur Specific Bronaugh 1.027 (1.003-1.030) 10/01/18 13:00 Urine Protein Negative mg/dL (NEGATIVE) 10/01/18 13:00 Urine Glucose (UA) Neg mg/dL (NEGATIVE) 10/01/18 13:00 Urine Ketones Negative mg/dL (NEGATIVE) 10/01/18 13:00 Urine Blood Negative (NEGATIVE) 10/01/18 13:00 Urine Nitrate Negative (NEGATIVE) 10/01/18 13:00 Urine Bilirubin Negative (NEGATIVE) 10/01/18 13:00 Urine Urobilinogen 4.0 mg/dL (0.2-1.0) H 10/01/18 13:00 Ur Leukocyte Esterase Neg Jorge/uL (Negative) 10/01/18 13:00 Urine Microscopic WBC 1 /hpf (0-5) 10/01/18 13:00 Ur Squamous Epith Cells 1 /hpf (0-5) 10/01/18 13:00 Urine Bacteria Rare (<OCC) 10/01/18 13:00 Urine Osmolality 343 mosm/kg (300-1000) 10/01/18 13:00 Ur Random Creatinine 58.6 mg/dL 10/01/18 17:15 U Random Total Protein 18.0 mg/dL (0.0-12.0) H 10/01/18 17:15 Ur Random Sodium 71 meq/L 10/01/18 17:15 Ur Random Potassium 21.2 mmol/L 10/01/18 17:15 Hepatitis A IgM Ab Negative (NEGATIVE) 10/01/18 16:00 Hep Bs Antigen Negative (NEGATIVE) 10/01/18 16:00 Hep B Core IgM Ab Negative (NEGATIVE) 10/01/18 16:00 Hepatitis C Antibody Negative (NEGATIVE) 10/01/18 16:00 - Hospital Course Hospital Course: pt admitted for chronic pain and abn bw. gi and nephro consults apprciated. cleared by specialists for dc Discharge Exam - Head Exam Head Exam: ATRAUMATIC, NORMAL INSPECTION, NORMOCEPHALIC Discharge Plan - Discharge Medications Prescriptions: Lactulose [Enulose] 20 gm PO Q12 #120 ml Polyethylene Glycol 3350 [Miralax] 17 gm PO DAILY #30 packet - Follow Up Plan Condition: FAIR Disposition: HOME/ ROUTINE Additional Instructions: final dx-chronic back pain, niddm, morbid obesity, abn bw-hyponatremia/elev lft doign well, no new complaints. cleared by specialists. repeat labs thursday am.
--- NOTE | 2018-10-02 22:13 | CP.PCM.PN ---
Subjective - Date & Time of Evaluation Date of Evaluation: 10/02/18 Time of Evaluation: 11:00 - Subjective Subjective: renal follow up note no new complaints vitals reviewed, morbidly obese heent normal op moist no jvd s1s2 present no resp dsitress abd soft nt obese skin normal cooperative ao times 3 Chronic hyponatremia from previous admission in [facility] Diagnosis what appears to be SIADH Massive obesity Bilateral leg edema Abnormal liver enzyme including high bilirubin Diabetes mellitus sodium better today at 129 ,no tolvaptan today monitor lytes and uop can restart free water restriction Objective - Vital Signs/Intake and Output Vital Signs (last 24 hours): Temp Pulse Resp BP Pulse Ox 98.3 F 94 H 18 101/65 98 10/02/18 12:00 10/02/18 12:00 10/02/18 12:00 10/02/18 12:00 10/02/18 12:00 - Labs Labs: 10/01/18 12:25 10/02/18 05:31
--- NOTE | 2018-10-03 17:00 | US ---
Date of service: 10/01/2018 HISTORY: LFT COMPARISON: Comparison made with prior CT scan abdomen pelvis 09/30/2018 TECHNIQUE: Sonographic evaluation of the abdomen. FINDINGS: LIVER: Measures 14.9 cm. Smooth contour however increased echotexture suggesting fatty infiltration although other infiltrative hepatocellular disease process not excluded.. No mass. No intrahepatic bile duct dilatation. GALLBLADDER: Cholecystectomy. COMMON BILE DUCT: Measures 5.0 mm. No stones. No dilatation. PANCREAS: The distal pancreatic body and tail poorly seen due to body habitus and bowel gas. RIGHT KIDNEY: Measures 10.5 x 3.5 x 4.2cm. Normal echogenicity. No calculus, mass, or hydronephrosis. LEFT KIDNEY: Measures 11.0 x 4.7 x 4.7cm. Normal echogenicity. No calculus, mass, or hydronephrosis. SPLEEN: Normal in size (9.5 cm) and contour. No mass. AORTA: No aneurysmal dilatation. IVC: Unremarkable. OTHER FINDINGS: None. IMPRESSION: Hepatic liver exhibits increased echotexture which is likely due to fatty infiltration however other infiltrative hepatocellular disease process not excluded. Cholecystectomy. .
== END 2018-10-02 13:25 | disposition home or self-care (01) ==
LOC: H.ER 17:37 → H.ERHOLD 10-01 00:57 → H.TEL 10-01 07:03
PROVIDERS: ADMIT Family Medicine; ATTEND Family Medicine
DX: G89.29 Other chronic pain (principal); E87.1 Hypo-osmolality and hyponatremia; E11.9 Type 2 diabetes mellitus without complications; E66.01 Morbid (severe) obesity due to excess calories; Z68.42 Body mass index [BMI] 45.0-49.9, adult; R09.02 Hypoxemia; Z87.891 Personal history of nicotine dependence; G47.33 Obstructive sleep apnea (adult) (pediatric); I10 Essential (primary) hypertension; Z88.6 Allergy status to analgesic agent; Z88.5 Allergy status to narcotic agent; Z91.013 Allergy to seafood; Z91.018 Allergy to other foods; E78.00 Pure hypercholesterolemia, unspecified; M19.90 Unspecified osteoarthritis, unspecified site; E86.0 Dehydration; K59.00 Constipation, unspecified; R74.8 Abnormal levels of other serum enzymes; R74.0 Nonspecific elevation of levels of transaminase and lactic acid dehydrogenase [LDH]; Z79.84 Long term (current) use of oral hypoglycemic drugs; J45.909 Unspecified asthma, uncomplicated
CPT/HCPCS: 36415; 71045; 74177; 76700; 80053; 80061; 80074; 81003; 82436; 82570; 82948; 83690; 83735; 83880; 83930; 83935; 84100; 84132; 84156; 84300; 84484; 85025; 93306; 96372; 96374; 96375; 97162; 99285; G0378; G8978; G8979; J1644; J1885; J2765; J7030; Q9967